=== PATIENT | female | born 1970 | race Caucasian/White ===

== ENCOUNTER 2018-08-01 17:53 | Emergency (ER) | payer MEDICAID, OTHER ==
[~2018-08-01] VITALS: Ht 157.5 cm; Wt 78.7 kg
[2018-08-01 18:04] VITALS: Ht 157.5 cm; Wt 78.7 kg
--- NOTE | 2018-08-01 23:23 | ERD ---
ER Documentation Chief Complaint Chief Complaint Body aches, MAJOR, SOB X 3 months HPI 48-year-old female, with history of asthma, presents to the emergency department, complaining of persistent dry cough for 4 months. The patient has been using her albuterol MDI without improvement of the symptoms. She denies any recent fever, chills, no shortness of breath. ROS All systems reviewed and are negative except as per history of present illness. Allergies Allergies: Coded Allergies: No Known Allergy (Unverified , 08/01/18) PMhx/Soc History of Surgery: No Anesthesia Reaction: No Hx Neurological Disorder: No Hx Respiratory Disorders: Yes (Asthma) Hx Cardiac Disorders: Yes (HTN) Hx Psychiatric Problems: No Hx Miscellaneous Medical Probl: No Hx Alcohol Use: No Hx Substance Use: No Hx Tobacco Use: No Smoking Status: Never smoker FmHx Family History: No diabetes, No coronary disease Physical Exam Vitals Vital Signs Date Temp Pulse Resp B/P (MAP) Pulse Ox O2 O2 Flow FiO2 Time Delivery Rate 08/01/18 83 18 95 21 23:47 08/01/18 98.1 82 18 193/93 98 18:04 (126) Physical Exam Patient alert, oriented, vital signs stable. HEENT: Normocephalic, atraumatic. EYES: PERRLA, EOMI, Sclera and conjunctiva appear normal. EARS: Canals clear, tympanic membranes WNL. THROAT: Normal oropharynx. NECK: Supple, No lymphadenopathy. Full ROM without pain or tenderness. HEART: RRR, no rubs, murmurs, clicks or gallops. LUNGS: scattered wheezing to auscultation bilaterally ABDOMEN: Soft , non-tender without masses or hepatosplenomegaly. EXTREMITIES: No edema bilaterally. BACK: Full ROM, no deformity, normal back exam NEURO: Cranial nerves grossly intact, no motor or sensory deficit SKIN: No rashes, no petechia. Results 24 hrs Current Medications Medications Dose Sig/Osmar Start Time Status Last (Trade) Ordered Route PRN Stop Time Admin Dose Reason Admin Albuterol 5 mg ONCE STAT 08/01/18 DC 08/01/18 (Proventil HHN 23:28 08/01/18 23:47 0.083% (Neb)) 23:30 Ipratropium 0.5 mg ONCE ONCE 08/01/18 DC 08/01/18 [place] [facility] 23:30 08/01/18 23:46 (Atrovent 23:31 0.02% (Neb)) Procedures/MDM At the time of discharge, vital signs stable, no respiratory distress. Differential diagnosis include but not limited to: Respiratory infection bacterial/viral/fungal. Asthma/COPD, pneumonitis, allergies, GERD. Less likely foreign body aspiration, cardiac related, aspiration pneumonia, malignancy. Physical examination and clinical presentation consistent most likely with uncontrolled mild intermittent asthma. During the ED course the patient remained stable, received a nebulized treatment in the ED presenting overall improvement of the symptoms, no new complaints. Clinical impression discussed with the patient who agrees with management. The patient is stable to be treated outpatient and will be discharged home. Some side effects of prescribed medications (headache, rash, nausea, vomiting, diarrhea, drowsiness, habituation, bleeding, hypertension, interactions with other medications) were reviewed. The patient was instructed to follow up with the primary care provider in the next 48h. If symptoms persist, worsen or new symptoms develop, then patient should return to the ED immediately. Disclaimer: Inadvertent spelling and grammatical errors are likely due to EHR/dictation software use and do not reflect on the overall quality of patient care. Also, please note that the electronic time recorded on this note does not necessarily reflect the actual time of the patient encounter. Departure Diagnosis: Primary Impression: Uncontrolled intermittent asthma Condition: Stable Patient Instructions: Asthma, Acute (Adult) Additional Instructions: Muchas ariadna por [facility] para dinh servicio. Esperamos que en dinh visita a la mani de emergencia dinh problema medico haya sido solucionado y que se sienta mucho mejor. Para estar seguros que dinh mejoria sigue en proceso, le pedimos el favor de hacer rishi neli de seguimiento medico con dinh doctor primario en los proximos 2-4 jiménez. Lleve con usted estos documentos y las medicinas recetadas. Si conrad sintomas empeoran, NO SE ESPERE, por favor regrese a mani de emergencia INMEDIATAMENTE. En cam que usted no tenga un mdico de atencin primaria: Llame al mdico o clnica comunitaria de referencia que aparece abajo radha las horas de consultorio para hacer rishi neli para que le vean. CLINICAS: [facility] [phone] [facility] [phone] [facility] [phone] [place] [phone] [place] [id number] [phone] [facility]. [phone] MELISSA COLON MD Aug 01, 2018 23:23
[2018-08-01] MEDS ORDERED: ALBUTEROL 0.083% (NEB) 2.5 MG/3 ML AMP HHN STA (23:28)
[2018-08-01] MEDS ORDERED: IPRATROPIUM (NEB) 0.5 MG/2.5 ML AMP HHN ONE (23:30)
[2018-08-01] MEDS ORDERED: ALBU8.5H8 INH (23:57)
[2018-08-01] MEDS ORDERED: PRED20TA PO (23:57)
[2018-08-01] MEDS ORDERED: MONT10TA21 PO (23:57)
[2018-08-02 00:27] VITALS: BP 170/84; PULSE 86; RESP 19
== END 2018-08-02 00:27 | disposition home or self-care (01) ==
LOC: FTE 17:53
DX: J45.901 Unspecified asthma with (acute) exacerbation (principal); I10 Essential (primary) hypertension
CPT/HCPCS: 71046; 94664; Z7502; Z7610

== ENCOUNTER 2018-12-16 17:43 | Emergency (ER) | payer MEDICAID ==
[~2018-12-16] VITALS: Ht 152.4 cm; Wt 78.4 kg
[~2018-12-16 17:43] MED LIST: ALBU8.5H8 INH; MONT10TA21 PO; PRED20TA PO
[2018-12-16 17:49] VITALS: Ht 152.4 cm; Wt 78.4 kg
[2018-12-17 01:48] VITALS: BP 143/85; PULSE 78; RESP 16
== END 2018-12-17 01:50 | disposition home or self-care (01) ==
LOC: E/R 17:43
DX: F32.9 Major depressive disorder, single episode, unspecified (principal); R40.2142 Coma scale, eyes open, spontaneous, at arrival to emergency department; I10 Essential (primary) hypertension; J45.909 Unspecified asthma, uncomplicated; R40.2362 Coma scale, best motor response, obeys commands, at arrival to emergency department; R40.2252 Coma scale, best verbal response, oriented, at arrival to emergency department
CPT/HCPCS: 80053; 80307; 81001; 85025; Z7502; Z7610